=== PATIENT | male | born 1950 | race Caucasian/White ===

== ENCOUNTER 2018-08-05 06:47 | Day surgery (SDC) | payer MEDICARE, OTHER ==
[~2018-08-05] VITALS: Ht 182.9 cm; Wt 76.2 kg
[~2018-08-05 06:47] MED LIST: LISI40TA PO
[2018-08-05] MEDS ORDERED: IODIXANOL 320MG/ML 100ML BTL IV ONE (07:18)
[2018-08-05] MEDS ORDERED: LIDOCAINE 2%HCL (LOCAL ANESTH.) INJ 10ml MDV ONE (07:18)
[2018-08-05] MEDS ORDERED: ANGIOMAX 250 MG VIAL IV ONE (07:48)
[2018-08-05] MEDS ORDERED: fentaNYL CITRATE 100 MCG/2 ML VL ONE (07:48)
[2018-08-05] MEDS ORDERED: MIDAZOLAM HCL 1MG/1ML-2 ML VIAL ONE (07:49)
[2018-08-05] MEDS ORDERED: SODIUM CHL 0.9% 0 ML ONE (07:49)
[2018-08-05] MEDS ORDERED: VERAPAMIL 2.5MG/ML INJ 2ML VIAL IV ONE (07:50)
[2018-08-05] MEDS ORDERED: HEPARIN SODIUM (PORCINE) 5000 UNITS/ML 1ML VIAL ONE (08:05)
== END 2018-08-05 10:30 | disposition home or self-care (01) ==
LOC: CATH 06:47
PROVIDERS: ATTEND Internal Medicine
DX: I25.10 Atherosclerotic heart disease of native coronary artery without angina pectoris (principal); R94.39 Abnormal result of other cardiovascular function study; I10 Essential (primary) hypertension; Z87.891 Personal history of nicotine dependence; Z79.899 Other long term (current) drug therapy
CPT/HCPCS: 93458; A6257; C1769; C1894; J1644; J2001; J2250; J3010; J7030; Q9967; 99152